=== PATIENT | female | born 1975 | race Caucasian/White ===

== ENCOUNTER 2016-08-09 00:50 | Emergency (ER) | payer BC, MEDICAID ==
[~2016-08-09] VITALS: Ht 170.2 cm; Wt 113.4 kg
[~2016-08-09 00:50] MED LIST: BENTYL10 MG PO; HRT; ZOFRAN ODT4 MG PO
[2016-08-09 01:13] VITALS: BP 154/105
--- NOTE | 2016-08-09 01:26 | NUR ---
PT TAKEN TO BED 07
--- NOTE | 2016-08-09 01:35 | NUR ---
PT IS 40Y/F C/O SORETHROAT, WTIH RUNNING NOSE, LEFT EYE PAIN, MUSCLE SPASM ON RT SHOULDER BLADE.
--- NOTE | 2016-08-09 01:59 | NUR ---
Patient being evaluated by DR. MOSES at bedside.
[2016-08-09] MEDS ORDERED: KETOROLAC 30 MG/ML VIAL IM ONE (02:05)
[2016-08-09] MEDS ORDERED: DEXAMETHASONE 10 MG/ML VIAL PO ONE (02:05)
[2016-08-09] MEDS ORDERED: ACETAMIN/CODEINE 120/12MG-5ML 5 ML UDC PO ONE (02:05)
[2016-08-09 03:05] VITALS: BP 132/81
--- NOTE | 2016-08-09 03:05 | NUR ---
Patient discharged with v/s stable. Written and verbal after care instructions given and explained. Patient alert, oriented and verbalized understanding of instructions. Ambulatory with steady gait. All questions addressed prior to discharge. ID band removed. Patient advised to follow up with PMD. Rx of TOBRAMYCIN 0.3% OPTHALMIC SOLUTION, GUAIATUSSIN 1C 100MG-10MG/5ML SOLUTION, AMOXICILLIN 500MG PO, NAPROSYN 500MG PO given. Patient educated on indication of medication including possible reaction and side effects. Opportunity to ask questions provided and answered.
== END 2016-08-09 03:05 | disposition home or self-care (01) ==
LOC: MED 00:50
DX: J02.9 Acute pharyngitis, unspecified (principal); H10.32 Unspecified acute conjunctivitis, left eye; E89.0 Postprocedural hypothyroidism
CPT/HCPCS: 96372; 99283; J1100; J1885

== ENCOUNTER 2016-10-07 07:11 | Emergency (ER) | payer MEDICAID, OTHER ==
[~2016-10-07] VITALS: Ht 170.2 cm; Wt 114.5 kg
[2016-10-07 07:30] VITALS: BP 143/95
--- NOTE | 2016-10-07 07:40 | NUR ---
PATIENT PRESENTS TO ED WITH LEFT SHOULDER PAIN STARTED DAY BEFORE YESTERDAY ,NO TRAUMA OR INJURY.PRIOR TO FRIDAY BLOATING AND DIZZINESS FRIDAY GOT WORST UNTIL NOW.1 WEEK NAUSEA,DIZZINESS,BLOATING,EPIGASTRIC PAIN; DENIES DIARRHEA; SKIN IS PINK/WARM/DRY; AAOX4 WITH EVEN AND STEADY GAIT; LUNGS CLEAR BL; HR EVEN AND REGULAR; PT DENIES ANY FEVER, CP, SOB, OR COUGH AT THIS TIME; PATIENT STATES PAIN OF 8/10 AT THIS TIME; VSS; PATIENT POSITIONED FOR COMFORT; HOB ELEVATED; BEDRAILS UP X2; BED DOWN. ER MD MADE AWARE OF PT STATUS.
--- NOTE | 2016-10-07 07:45 | NUR ---
EKG BEING DONE BY ENRIQUE THAKKAR WITH AT BEDSIDE
[2016-10-07] MEDS ORDERED: ONDANSETRON 4 MG/2 ML VIAL IVP ONE (08:00)
[2016-10-07] MEDS ORDERED: NACL 0.9% 1,000 ML IV ONE (08:00)
[2016-10-07] MEDS ORDERED: IBUPROFEN 600 MG TAB PO ONE (08:00)
--- NOTE | 2016-10-07 09:02 | NUR ---
AAO PT AMBULATES TO THE RESTROOM WITH
[2016-10-07] MEDS ORDERED: CYCLOBENZAPRINE 10 MG TAB PO ONE (09:40)
[2016-10-07] MEDS ORDERED: SUMAtriptan 6 MG/0.5 ML VIAL SUBQ ONE (09:45)
[2016-10-07] MEDS ORDERED: diphenhydrAMINE 50 MG/ML VIAL IVP ONE (09:45)
[2016-10-07] MEDS ORDERED: PROCHLORPERAZINE 10 MG/2 ML VIAL IVP ONE (09:45)
[2016-10-07] MEDS ORDERED: MECLIZINE 25 MG TAB PO ONE (11:05)
[2016-10-07 11:25] VITALS: BP 151/96
--- NOTE | 2016-10-07 11:25 | NUR ---
Patient discharged with v/s stable. Written and verbal after care instructions given and explained. Patient alert, oriented and verbalized understanding of instructions. Ambulatory with steady gait. All questions addressed prior to discharge. ID band removed. Patient advised to follow up with PMD. Rx of FLEXERIL given. Patient educated on indication of medication including possible reaction and side effects. Opportunity to ask questions provided and answered.
== END 2016-10-07 11:25 | disposition home or self-care (01) ==
LOC: MED 07:11
DX: S46.912A Strain of unspecified muscle, fascia and tendon at shoulder and upper arm level, left arm, initial encounter (principal); R59.0 Localized enlarged lymph nodes; I51.7 Cardiomegaly; R42 Dizziness and giddiness; X58.XXXA Exposure to other specified factors, initial encounter; Y93.89 Activity, other specified; Y92.89 Other specified places as the place of occurrence of the external cause; Y99.8 Other external cause status
CPT/HCPCS: 36415; 70450; 73030; 80053; 84439; 84443; 84484; 85025; 87804; 93005; 96361; 96374; 96375; 99285; J0780; J1200; J2405; J3030; J7030; J8597; Q0092

== ENCOUNTER 2017-04-08 14:29 | Inpatient (IN) | payer OTHER ==
[~2017-04-08] VITALS: Ht 170.2 cm; Wt 113.4 kg
--- NOTE | 2017-04-08 14:37 | NUR ---
Patient taken to bed 07 via gurney per family member.
[2017-04-08 14:38] VITALS: BP 159/95
--- NOTE | 2017-04-08 14:40 | NUR ---
41F BIB FAMILY C/O BL LOWER ABDOMINAL PAIN AND STATES HAVING "CLOTTS OF BLOOD WHEN I WIPE" X YESTERDAY. HX: HTN RX: LOSARTAN AND " ONE MORE I CAN'T REMEMBER"; DENIES N/V/D; SKIN IS PINK/WARM/DRY; AAOX4 WITH EVEN AND STEADY GAIT; LUNGS CLEAR BL; HR EVEN AND REGULAR; PT DENIES ANY FEVER, CP, SOB, OR COUGH AT THIS TIME; PATIENT STATES PAIN OF 10/10 AT THIS TIME; VSS; PATIENT POSITIONED FOR COMFORT; HOB ELEVATED; BEDRAILS UP X2; BED DOWN. ER MD MADE AWARE OF PT STATUS.
--- NOTE | 2017-04-08 14:48 | NUR ---
DR SWEENEY EVALUATING AAO PT WITH AT BEDSIDE
[2017-04-08] MEDS ORDERED: KETOROLAC 30 MG/ML VIAL IVP ONE (14:55)
[2017-04-08] MEDS ORDERED: ONDANSETRON 4 MG/2 ML VIAL IVP ONE (14:55)
--- NOTE | 2017-04-08 15:18 | NUR ---
US TECH JEANNE AT BEDSIDE
[2017-04-08 15:23] LABS: APPEARANCE,URINE CLEAR (CLEAR); BILIRUBIN,URINE NEGATIVE (NEGATIVE); BLOOD, URINE 1+ (NEGATIVE); COLOR,URINE YELLOW (YELLOW); LEUKOCYTE ESTERASE ,URINE NEGATIVE (NEGATIVE); NITRITE, URINE NEGATIVE (NEGATIVE); UGLUCOSE NEGATIVE (NEGATIVE)
[2017-04-08 15:43] LABS: ANION GAP 13.3 (8-16); CARBON DIOXIDE 27.5 mmol/L (21-32); CREATININE 0.9 mg/dL (0.6-1.3); POTASSIUM 3.8 mmol/L (3.5-5.1)
[2017-04-08 15:45] LABS: RBC,URINE 0-5 (RARE) /HPF (0-5); WBC,URINE 0-5 (RARE) /HPF (0-5)
[2017-04-08 15:46] LABS: YEAST,URINE Rare /HPF (None Seen)
[2017-04-08 15:48] LABS: HEMATOCRIT 39.2 % (36-48); HEMOGLOBIN 12.8 g/dL (12.0-16.0); MEAN CORPUSCULAR HEMOGLOBIN 29 pg (27-31); MEAN CORPUSCULAR HGB CONC 33 g/dL (33-37); MEAN CORPUSCULAR VOLUME 90 fL (80-94); RED BLOOD CELL COUNT(AUTO) 4.38 MIL/uL (4.20-5.40); RED CELL DISTRIBUTION WIDTH 13.2 % (11.6-13.7); TOTAL BILIRUBIN 0.4 mg/dL (0.0-1.0); WHITE BLOOD COUNT (AUTO) 8.3 K/uL (4.8-10.8)
[2017-04-08 15:49] LABS: BASOPHILS % (AUTO) 0.4 % (0.0-2.0); EOSINOPHILS # (AUTO) 0.1 K/uL (0-0.4); EOSINOPHILS % (AUTO) 1.8 % (0.0-4.0); LYMPHOCYTES # (AUTO) 2.2 K/uL (2.5-16.5); LYMPHOCYTES % (AUTO) 26.8 % (20.5-51.1); MONOCYTES # (AUTO) 0.5 K/uL (0.8-1.0); MONOCYTES % (AUTO) 5.8 % (1.7-9.3); NEUTROPHILS # (AUTO) 5.4 K/uL (1.8-7.7); NEUTROPHILS % (AUTO) 65.2 % (42.2-75.2); PLATELET COUNT (AUTO) 305 K/uL (140-450)
[2017-04-08] MEDS ORDERED: NACL 0.9% 1,000 ML IV ONE (15:55)
--- NOTE | 2017-04-08 16:09 | NUR ---
Patient taken to CT via wheelchair per tech.
--- NOTE | 2017-04-08 16:10 | NUR ---
PT TAKEN OFF THE UNIT VIA WHEEL CHAIR BY BANK WORKER [place] FOR CT OF THE ABDOMEN WITH CONTRAST
--- NOTE | 2017-04-08 16:24 | NUR ---
Patient back from CT.
--- NOTE | 2017-04-08 17:23 | NUR ---
AAO PT REQUESTING BED HUMPHREY PROVIDED
[2017-04-08] MEDS ORDERED: FURO20TA8 PO (17:49)
[2017-04-08] MEDS ORDERED: METO50TE2 PO (17:51)
[2017-04-08] MEDS ORDERED: HYDR-3423 PO (17:52)
[2017-04-08] MEDS ORDERED: fentaNYL 0.05 MG/ML VIAL IVP ONE (18:05)
--- NOTE | 2017-04-08 18:05 | NUR ---
Patient will be admitted to care of DR MARIN. Admited to TELE. Will go to room 120A. Belongings list completed. Report to SHELBY CURTIS.
--- NOTE | 2017-04-08 18:20 | NUR ---
WASTED 1ML/50MCG FENTANYL
[2017-04-08] MEDS ORDERED: LORazepam 2 MG/ML VIAL IVP PRN (18:25)
[2017-04-08] MEDS ORDERED: HYDROcodone/APAP 5/325 MG 1 TAB TAB PO PRN (18:25)
[2017-04-08] MEDS ORDERED: ACETAMINOPHEN 325 MG TAB PO PRN (18:25)
[2017-04-08] MEDS ORDERED: MORPHINE SULFATE 2 MG/ML SYR IVP PRN (18:25)
[2017-04-08] MEDS ORDERED: ONDANSETRON 4 MG/2 ML VIAL IVP PRN (18:25)
--- NOTE | 2017-04-08 18:39 | NUR ---
Admitted from ER, with chief complaint of ABDOMINAL PAIN , 41 y/o ,Female, Appropriate, AAOX4, NO S/S OF ACUTE DISTRESS. PT STATES PAIN IS REDUCED FROM PAIN MED, IV SITE PATENT AND INTACT. PLAN OF CARE DISCUSSED. PT VERBALIZED UNDERSTANDING. PT oriented to call light, bed, phone,television, bathroom, smoking policy, visiting hours, procedures, ID bracelet on. Belongings list checked.
[2017-04-08 18:41] VITALS: BP 135/82
--- NOTE | 2017-04-08 19:06 | NUR ---
ENDORSED PLAN OF CARE TO NIGHT RN. PT REMAINS STABLE.
--- NOTE | 2017-04-08 19:07 | NUR ---
RECEIVED REPORT FROM DAY NURSE, PT IN STABLE CONDITION NO S/S OF DISTRESS NOTED. PT IS ON RA, IV TO R AC 20 G, PATENT AND INTACT. SKIN IS INTACT. RESPIRATIONS ARE EVEN AND UNLABORED, BOWEL SOUNDS PRESENT. INITIAL PLAN COMPLETED, PLAN OF CARE DISCUSSED WITH PT, PT VERBALIZED UNDERSTANDING. ALL SAFETY PRECAUTIONS MET, CALL LIGHT WITHIN REACH, WILL CONTINUE TO MONITOR.
--- NOTE | 2017-04-08 19:20 | NUR ---
PAGED DR. MARIN FOR CLARIFICATION ON RATE OF IV FLUIDS
--- NOTE | 2017-04-08 19:21 | NUR ---
SR. MARIN PAGED BACK WILL CARRY OUT ORDERS
[2017-04-08] MEDS: NACL 0.9% 1,000 ML IV SCH (20:00)
[2017-04-08] MEDS ORDERED: METOPROLOL SUCCINATE 50 MG TABER PO SCH (21:00)
[2017-04-08] MEDS ORDERED: PIPERACILLIN/TAZOBACTAM 3.375 GM in DEXTROSE 5% 50 ML IV SCH (21:00)
[2017-04-08] MEDS ORDERED: PIPERACILLIN/TAZOBACTAM 3.375 GM VIAL IV ONE (21:12)
[2017-04-08] MEDS: METOPROLOL 25 MG TAB PO SCH (21:28)
[2017-04-08] MEDS: PIPER/TAZO 3.375GM/D5W PREMIX 50 ML IV SCH (21:28)
--- NOTE | 2017-04-08 21:28 | NUR ---
MEDICATION GIVEN WITH EDUCATION. PT VERBALIZED UNDERSTANDING. CALL LIGHT WITHIN REACH. SAFETY MEASURES ENSURED. WILL CONTINUE TO MONITOR.
[2017-04-09] VITALS: BP 118/69
[2017-04-09] MEDS ORDERED: PIPERACILLIN/TAZOBACTAM 3.375 GM VIAL IV ONE (04:35)
[2017-04-09] MEDS: PIPER/TAZO 3.375GM/D5W PREMIX 50 ML IV SCH ×2 (04:50→12:35)
[2017-04-09 05:55] LABS: BASOPHILS # (AUTO) 0.2 K/uL (0.00-0.22); BASOPHILS % (AUTO) 2.1 % (0.0-2.0); EOSINOPHILS # (AUTO) 0.2 K/uL (0-0.4); EOSINOPHILS % (AUTO) 3.1 % (0.0-4.0); HEMATOCRIT 34.7 % (36-48); HEMOGLOBIN 11.6 g/dL (12.0-16.0); LYMPHOCYTES # (AUTO) 2.7 K/uL (2.5-16.5); LYMPHOCYTES % (AUTO) 37.3 % (20.5-51.1); MEAN CORPUSCULAR HEMOGLOBIN 30 pg (27-31); MEAN CORPUSCULAR HGB CONC 34 g/dL (33-37); MEAN CORPUSCULAR VOLUME 90 fL (80-94); MONOCYTES # (AUTO) 0.5 K/uL (0.8-1.0); MONOCYTES % (AUTO) 6.2 % (1.7-9.3); NEUTROPHILS # (AUTO) 3.7 K/uL (1.8-7.7); NEUTROPHILS % (AUTO) 51.3 % (42.2-75.2); PLATELET COUNT (AUTO) 263 K/uL (140-450); RED BLOOD CELL COUNT(AUTO) 3.87 MIL/uL (4.20-5.40); RED CELL DISTRIBUTION WIDTH 12.4 % (11.6-13.7); WHITE BLOOD COUNT (AUTO) 7.3 K/uL (4.8-10.8)
[2017-04-09 06:12] LABS: ANION GAP 9.5 (8-16); CARBON DIOXIDE 29.4 mmol/L (21-32); CREATININE 0.9 mg/dL (0.6-1.3); POTASSIUM 3.9 mmol/L (3.5-5.1)
[2017-04-09] MEDS: NACL 0.9% 1,000 ML IV SCH (06:54)
--- NOTE | 2017-04-09 07:17 | NUR ---
GAVE REPORT TO AM NURSE AT THE BEDSIDE FOR CONTINUITY OF CARE. PT IN STABLE CONDITION. NO S/S OF DISTRESS NOTED
--- NOTE | 2017-04-09 07:23 | NUR ---
RECEIVED REPORT FROM NIGHT SHELBY STEELE. PT RESTING IN BED. AAOX4, NO S/S OF ACUTE DISTRESS. PT DENIES PAIN. IV SITE PATENT AND INTACT. PLAN OF CARE DISCUSSED WITH PT, PT VERBALIZED UNDERSTANDING. CALL LIGHT WITHIN REACH. SAFETY MEASURES ENSURED. WILL CONTINUE TO MONITOR.
[2017-04-09] MEDS ORDERED: PROPOFOL 200 MG/20 ML VIAL IV ONE (07:49)
[2017-04-09] MEDS ORDERED: LIDOCAINE 2% 100 MG/5 ML SYR IVP ONE (07:49)
[2017-04-09] MEDS ORDERED: SEVOFLURANE 250 ML BTL INH ONE (07:49)
[2017-04-09 08:02] VITALS: BP 120/78
--- NOTE | 2017-04-09 08:20 | NUR ---
CM NOTE INITIAL REVIEW FAXED TO [facility] [phone] # [phone]
--- NOTE | 2017-04-09 08:24 | NUR ---
NOTIFIED DR Mirza LEWIS REGARDING CONSULT NEW ORDER KEEP PT NPO WILL SEE PT TODAY
[2017-04-09] MEDS: METOPROLOL 25 MG TAB PO SCH (08:44)
--- NOTE | 2017-04-09 08:51 | NUR ---
DUE MEDICATIONS GIVEN WITH PT TEACHING, PT VERBALIZED UNDERSTANDING OF MEDS, CALL LIGHT WITHIN REACH, WILL CONT TO MONITOR.
[2017-04-09] MEDS ORDERED: HYDROCHLOROTHIAZIDE 25 MG TAB PO SCH (09:00)
[2017-04-09] MEDS ORDERED: FUROSEMIDE 20 MG TAB PO SCH (09:00)
[2017-04-09] MEDS ORDERED: NON-FORMULARY ITEM (Losartan/Hydrochlorothiazide (Losartan-Hctz 50-12.5 mg Tab) 1 TAB) PO SCH (09:00)
[2017-04-09] MEDS ORDERED: LOSARTAN 50 MG TAB PO SCH (09:00)
[2017-04-09] MEDS ORDERED: ENOXAPARIN 40 MG/0.4 ML SYR SUBQ SCH (09:00)
--- NOTE | 2017-04-09 09:23 | NUR ---
PATIENT HAS BEEN SCREENED AND CATEGORIZED MODERATE NUTRITION RISK. PATIENT WILL BE SEEN WITHIN 3-5 DAYS OF ADMISSION. 04/11/17-04/13/[address]
--- NOTE | 2017-04-09 09:35 | NUR ---
PT OFF THE UNIT TO OPERATING ROOM AT 0935.
[2017-04-09] MEDS ORDERED: ONDANSETRON 4 MG/2 ML VIAL IVP PRN ×2 (10:20→10:35)
[2017-04-09] MEDS ORDERED: ACETAMINOPHEN/CODEINE 300/30MG 1 TAB PO PRN (10:20)
[2017-04-09] MEDS ORDERED: MORPHINE SULFATE 4 MG/ML SYR IM/IVP PRN (10:20)
[2017-04-09] MEDS ORDERED: IBUPROFEN 800 MG TAB PO PRN (10:20)
[2017-04-09] MEDS ORDERED: MIDAZOLAM 2 MG/2 ML VIAL ONE (10:24)
[2017-04-09] MEDS ORDERED: HYDROmorphone 1 MG/ML AMP IVP PRN (10:35)
[2017-04-09 11:30] VITALS: BP 109/76
--- NOTE | 2017-04-09 11:35 | NUR ---
RETURN FROM OR, NO S/S OF ACUTE DISTRESS, PT DENIES PAIN, PT VOIDED, RECEIVED REPORT FROM OR NURSE, CALL LIGHT WITHIN REACH, WILL CONT TO MONITOR.
--- NOTE | 2017-04-09 11:40 | NUR ---
CM NOTE RECEIVED A CALL FROM MARBLE CLEANER CARLOS WHO SAID THAT THIS PATIENT HAS IEHP WITH [facility] INSTEAD OF IEHP WITH [facility] INITIALLY STATED ON PATIENT'S FACESHEET. INITIAL REVIEW FAXED TO [facility] [phone] ISAURA MARTINEZ PH# [phone]
[2017-04-09 15:04] VITALS: BP 109/76
--- NOTE | 2017-04-09 15:42 | NUR ---
PT CLEARED FOR TRANSFER HOME. PT DENIES PAIN AT THIS TIME. IV TAKEN OUT TIP INTACT. DISCHARGE INSTRUCTIONS PROVIDED. PT VERBALIZED UNDERSTANDING. NO VAGINAL BLEEDING AT THIS TIME. PT'S AT BEDSIDE. PT REMAINS STABLE.
== END 2017-04-09 15:55 | disposition home or self-care (01) | DRG 517 ==
LOC: MED 14:29 → MTU 18:31
PROVIDERS: ADMIT Hospitalist; ATTEND Hospitalist
PROC: 0UDB7ZZ Extraction of Endometrium, Via Natural or Artificial Opening (ICD-10-PCS; principal; 2017-04-09 09:15)
DX: N88.8 Other specified noninflammatory disorders of cervix uteri (principal); I10 Essential (primary) hypertension; N93.9 Abnormal uterine and vaginal bleeding, unspecified; R00.1 Bradycardia, unspecified; E66.9 Obesity, unspecified; F32.9 Major depressive disorder, single episode, unspecified; D64.9 Anemia, unspecified; F41.9 Anxiety disorder, unspecified; T44.7X5A Adverse effect of beta-adrenoreceptor antagonists, initial encounter; Z68.39 Body mass index [BMI] 39.0-39.9, adult; Z87.891 Personal history of nicotine dependence; Z90.710 Acquired absence of both cervix and uterus; Y92.89 Other specified places as the place of occurrence of the external cause
CPT/HCPCS: 36415; 76830; 80048; 80053; 81001; 81025; 83735; 85025; 87081; 93005; 96361; 96374; 96375; 99285; J1650; J1885; J2001; J2250; J2405; J2543; J2704; J3010; J7030; J7060; J7120; Q0092; Q9967

== ENCOUNTER 2017-09-08 20:50 | Emergency (ER) | payer OTHER ==
[~2017-09-08] VITALS: Ht 167.6 cm; Wt 114.4 kg
[~2017-09-08 20:50] MED LIST changes: -BENTYL10 MG PO; +FURO20TA8 PO; -HRT; +HYDR-3293 PO; +METO50TE2 PO; -ZOFRAN ODT4 MG PO
[2017-09-08 20:57] VITALS: BP 119/72
--- NOTE | 2017-09-08 21:10 | NUR ---
EKG DONE AND URINE COLLECTED.
[2017-09-08 23:24] VITALS: BP 119/72
--- NOTE | 2017-09-08 23:24 | NUR ---
PATIENT LEFT WITHOUT BEING SEEN BY DR. LEMOS. NO FURTHER CARE PROVIDED FOR PATIENT.
== END 2017-09-08 23:24 | disposition left against medical advice (07) ==
LOC: MED 20:50
DX: R94.31 Abnormal electrocardiogram [ECG] [EKG] (principal); Z53.21 Procedure and treatment not carried out due to patient leaving prior to being seen by health care provider
CPT/HCPCS: 93005; 99281

== ENCOUNTER 2017-10-10 20:48 | Emergency (ER) | payer OTHER ==
[~2017-10-10] VITALS: Ht 168.9 cm; Wt 116.6 kg
[2017-10-10 21:05] VITALS: BP 116/69
--- NOTE | 2017-10-10 21:05 | NUR ---
PATIENT TRIAGED AND SENT TO ER LOBBY.
--- NOTE | 2017-10-10 22:15 | NUR ---
PATIENT TO ER BED 2.
[2017-10-10] MEDS ORDERED: diphenhydrAMINE 50 MG CAP PO ONE (22:55)
[2017-10-10 23:07] VITALS: BP 116/69
--- NOTE | 2017-10-10 23:07 | NUR ---
Patient discharged with v/s stable without sob or dyspnea. Written and verbal after care instructions given and explained. Patient alert, oriented and verbalized understanding of instructions. Ambulatory with steady gait. All questions addressed prior to discharge. ID band removed. Patient advised to follow up with PMD. Rx of Benadryl given. Patient educated on indication of medication including possible reaction and side effects. Opportunity to ask questions provided and answered.
== END 2017-10-10 23:07 | disposition home or self-care (01) ==
LOC: MED 20:48
DX: R21 Rash and other nonspecific skin eruption (principal); I10 Essential (primary) hypertension; Z90.710 Acquired absence of both cervix and uterus; Z79.899 Other long term (current) drug therapy; Z88.5 Allergy status to narcotic agent
CPT/HCPCS: 81002; 81025; 99282; Q0163

== ENCOUNTER 2017-11-08 19:24 | Emergency (ER) | payer OTHER ==
[~2017-11-08] VITALS: Ht 170.2 cm; Wt 117.9 kg
[2017-11-08 19:26] VITALS: BP 150/97
--- NOTE | 2017-11-08 19:30 | NUR ---
PATIENT PRESENTS TO ED WITH RIGHT FLANK PAIN X15 HRS. PT STATES PAIN IS CONSTANT AND CAN'T GET THE PAIN TO GO AWAY. SHE IS CONCERNED AND WISHES PHYSICIAN ASSESSMENT AT THIS TIME. URINATION, OCCASIONAL BURNING BUT NONE AT THIS TIME. DENIES N/V/D; SKIN IS PINK/WARM/DRY; AAOX4 WITH EVEN AND STEADY GAIT; LUNGS CLEAR BL; HR EVEN AND REGULAR; PT DENIES ANY FEVER, CP, SOB, OR COUGH AT THIS TIME; PATIENT STATES PAIN OF 8/10 AT THIS TIME; VSS; PATIENT POSITIONED FOR COMFORT; HOB ELEVATED; BEDRAILS UP X2; BED DOWN. ER MD MADE AWARE OF PT STATUS. CONTINUE TO MONITOR.
[2017-11-08] MEDS ORDERED: KETOROLAC 30 MG/ML VIAL IVP ONE (20:10)
[2017-11-08 20:40] LABS: APPEARANCE,URINE CLEAR (CLEAR); BILIRUBIN,URINE NEGATIVE (NEGATIVE); BLOOD, URINE TRACE-I (NEGATIVE); COLOR,URINE YELLOW (YELLOW); LEUKOCYTE ESTERASE ,URINE NEGATIVE (NEGATIVE); NITRITE, URINE NEGATIVE (NEGATIVE); PH,URINE 5.5 (5.0-9.0); UGLUCOSE NEGATIVE (NEGATIVE)
[2017-11-08 20:41] LABS: BASOPHILS % (AUTO) 0.4 % (0.0-2.0); EOSINOPHILS # (AUTO) 0.2 K/uL (0-0.4); EOSINOPHILS % (AUTO) 2.4 % (0.0-4.0); HEMATOCRIT 36.4 % (36-48); LYMPHOCYTES # (AUTO) 2.6 K/uL (2.5-16.5); MEAN CORPUSCULAR HEMOGLOBIN 29 pg (27-31); MEAN CORPUSCULAR HGB CONC 33 g/dL (33-37); MEAN CORPUSCULAR VOLUME 88.2 fL (80-94); MONOCYTES # (AUTO) 0.6 K/uL (0.8-1.0); MONOCYTES % (AUTO) 6.6 % (1.7-9.3); NEUTROPHILS # (AUTO) 5.5 K/uL (1.8-7.7); NEUTROPHILS % (AUTO) 61.6 % (42.2-75.2); PLATELET COUNT (AUTO) 282 K/uL (140-450); RED BLOOD CELL COUNT(AUTO) 4.13 MIL/uL (4.20-5.40); RED CELL DISTRIBUTION WIDTH 13.6 % (11.6-13.7)
[2017-11-08 20:48] LABS: ANION GAP 10.4 (8-16); CARBON DIOXIDE 30.3 mmol/L (21-32); CREATININE 0.9 mg/dL (0.6-1.3); POTASSIUM 3.7 mmol/L (3.5-5.1)
[2017-11-08 20:54] LABS: ALBUMIN 3.4 g/dL (3.4-5.0); TOTAL BILIRUBIN 0.2 mg/dL (0.0-1.0)
[2017-11-08 20:57] LABS: RBC,URINE 0-5 (RARE) /HPF (0-5); WBC,URINE 0-5 (RARE) /HPF (0-5)
[2017-11-08 21:57] VITALS: BP 150/97
--- NOTE | 2017-11-08 21:57 | NUR ---
Patient discharged with v/s stable. Written and verbal after care instructions given and explained. Patient alert, oriented and verbalized understanding of instructions. Ambulatory with steady gait. All questions addressed prior to discharge. ID band removed. Patient advised to follow up with PMD. Rx of Diclofenac given. Patient educated on indication of medication including possible reaction and side effects. Opportunity to ask questions provided and answered.
== END 2017-11-08 21:57 | disposition home or self-care (01) ==
LOC: MED 19:24
DX: K80.50 Calculus of bile duct without cholangitis or cholecystitis without obstruction (principal); K76.0 Fatty (change of) liver, not elsewhere classified; I10 Essential (primary) hypertension; E07.9 Disorder of thyroid, unspecified; Z79.899 Other long term (current) drug therapy; Z88.5 Allergy status to narcotic agent
CPT/HCPCS: 36415; 76705; 80053; 81001; 81025; 83690; 85025; 96372; 99285; J1885; Q0092

== ENCOUNTER 2018-12-28 14:25 | Emergency (ER) | payer MEDICAID, OTHER ==
[~2018-12-28] VITALS: Ht 167.6 cm; Wt 113.4 kg
--- NOTE | 2018-12-28 14:30 | NUR ---
Pt taken to bed 6.
[2018-12-28 14:36] VITALS: BP 154/98
--- NOTE | 2018-12-28 14:40 | NUR ---
C/O LOWER ABD PAIN THAT RADIATES TO BL LEGS X1 WEEK, W/ CONSTIPATION AND FREQUENT URINATION. PT ALSO STATES SHE HAS SOME VAGINAL BLEEDING. RX- LOSARTAN, HYDROCHLOROTHIAZIDE, METROPOLOL. PMH- HYSTERECTOMY, HTN.ABD SOFT. PATIENT STATES PAIN OF 8/10 AT THIS TIME;PATIENT POSITIONED FOR COMFORT; HOB ELEVATED; BEDRAILS UP X2; BED DOWN. ER MD MADE AWARE OF PT STATUS.
[2018-12-28] MEDS ORDERED: ONDANSETRON 4 MG/2 ML VIAL IVP ONE (15:10)
[2018-12-28] MEDS ORDERED: KETOROLAC 30 MG/ML VIAL IVP ONE (15:10)
--- NOTE | 2018-12-28 15:10 | NUR ---
PT TO CT SCAN.
[2018-12-28 15:14] LABS: APPEARANCE,URINE CLEAR (CLEAR); BILIRUBIN,URINE NEGATIVE (NEGATIVE); BLOOD, URINE NEGATIVE (NEGATIVE); COLOR,URINE YELLOW (YELLOW); LEUKOCYTE ESTERASE ,URINE NEGATIVE (NEGATIVE); NITRITE, URINE NEGATIVE (NEGATIVE); UGLUCOSE NEGATIVE (NEGATIVE)
[2018-12-28 15:31] LABS: BASOPHILS % (AUTO) 0.3 % (0.0-2.0); EOSINOPHILS # (AUTO) 0.2 K/uL (0-0.4); EOSINOPHILS % (AUTO) 1.7 % (0.0-4.0); HEMATOCRIT 37.9 % (36-48); HEMOGLOBIN 12.5 g/dL (12.0-16.0); LYMPHOCYTES # (AUTO) 2.4 K/uL (2.5-16.5); LYMPHOCYTES % (AUTO) 25.6 % (20.5-51.1); MEAN CORPUSCULAR HEMOGLOBIN 29 pg (27-31); MEAN CORPUSCULAR HGB CONC 33 g/dL (33-37); MEAN CORPUSCULAR VOLUME 88.9 fL (80-94); MONOCYTES # (AUTO) 0.6 K/uL (0.8-1.0); MONOCYTES % (AUTO) 5.8 % (1.7-9.3); NEUTROPHILS # (AUTO) 6.4 K/uL (1.8-7.7); NEUTROPHILS % (AUTO) 66.6 % (42.2-75.2); PLATELET COUNT (AUTO) 275 K/uL (140-450); RED BLOOD CELL COUNT(AUTO) 4.27 MIL/uL (4.20-5.40); RED CELL DISTRIBUTION WIDTH 13.7 % (11.6-13.7); WHITE BLOOD COUNT (AUTO) 9.6 K/uL (4.8-10.8)
[2018-12-28 15:45] LABS: CARBON DIOXIDE 25.7 mmol/L (21-32); CREATININE 0.8 mg/dL (0.6-1.3); POTASSIUM 3.7 mmol/L (3.5-5.1)
[2018-12-28 15:51] LABS: ALBUMIN 3.4 g/dL (3.4-5.0); TOTAL BILIRUBIN 0.4 mg/dL (0.0-1.0)
[2018-12-28 16:34] VITALS: BP 106/68
--- NOTE | 2018-12-28 16:34 | NUR ---
Patient discharged with v/s stable. Written and verbal after care instructions given and explained. Patient alert, oriented and verbalized understanding of instructions. Ambulatory with steady gait. All questions addressed prior to discharge. ID band removed. Patient advised to follow up with PMD. Rx of zofran, motrin & norco given. Patient educated on indication of medication including possible reaction and side effects. Opportunity to ask questions provided and answered.
== END 2018-12-28 16:34 | disposition home or self-care (01) ==
LOC: MED 14:25
DX: R10.32 Left lower quadrant pain (principal); R11.0 Nausea; R19.7 Diarrhea, unspecified; I10 Essential (primary) hypertension; E07.9 Disorder of thyroid, unspecified; Z90.710 Acquired absence of both cervix and uterus; Z79.899 Other long term (current) drug therapy; Z88.5 Allergy status to narcotic agent
CPT/HCPCS: 36415; 74176; 80053; 81003; 81025; 83690; 85025; 96374; 96375; 99284; J1885; J2405

== ENCOUNTER 2019-02-05 17:55 | Emergency (ER) | payer MEDICAID ==
[~2019-02-05] VITALS: Ht 170.2 cm; Wt 117.0 kg
[2019-02-05 18:07] VITALS: BP 165/101
--- NOTE | 2019-02-05 18:13 | NUR ---
PT TO WAIT IN ER ALYX. AA0X4. HYPERTENSION, WILL CONTINUE TO MONITOR
--- NOTE | 2019-02-05 20:30 | NUR ---
PT AMBULATED TO BED 01 WITH STEADY GAIT.
--- NOTE | 2019-02-05 20:51 | NUR ---
43 Y/O FEMALE C/O HEADACHE, L FACIAL NUMBNESS, PALPITATIONS, AND L ARM PAIN. PATIENT STATES IT FEELS LIKE PINS AND NEEDLES. PAIN 9/10. 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 PATIENT HAS NOT BEEN TAKING BP MEDICATIONS. NONPITTING EDEMA NOTED ON ANKLES BILATERALLY. SIDERAILS +1. ERMD TO SEE PATIENT. PMH- HEART MURMUR, HYSTERECTOMY, HTN RX: LOSARTAN
[2019-02-05] MEDS ORDERED: diphenhydrAMINE 50 MG/ML VIAL IVP ONE (21:05)
[2019-02-05] MEDS ORDERED: METOCLOPRAMIDE 10 MG/2 ML INJ VIAL IVP ONE (21:05)
[2019-02-05] MEDS ORDERED: NACL 0.9% 1,000 ML IV ONE (21:05)
--- NOTE | 2019-02-05 21:50 | NUR ---
MEDICATIONS ADMINISTERED ORDERED. RISKS/BENEFITS REVIEWED. WILL CONTINUE TO MONITOR.
[2019-02-05 22:00] LABS: BASOPHILS % (AUTO) 0.4 % (0.0-2.0); EOSINOPHILS # (AUTO) 0.2 K/uL (0-0.4); EOSINOPHILS % (AUTO) 2.5 % (0.0-4.0); HEMATOCRIT 37.3 % (36-48); HEMOGLOBIN 12.2 g/dL (12.0-16.0); LYMPHOCYTES # (AUTO) 2.6 K/uL (2.5-16.5); MEAN CORPUSCULAR HEMOGLOBIN 29 pg (27-31); MEAN CORPUSCULAR HGB CONC 33 g/dL (33-37); MEAN CORPUSCULAR VOLUME 88.5 fL (80-94); MONOCYTES # (AUTO) 0.5 K/uL (0.8-1.0); MONOCYTES % (AUTO) 5.2 % (1.7-9.3); NEUTROPHILS % (AUTO) 63.9 % (42.2-75.2); PLATELET COUNT (AUTO) 297 K/uL (140-450); RED BLOOD CELL COUNT(AUTO) 4.22 MIL/uL (4.20-5.40); RED CELL DISTRIBUTION WIDTH 13.8 % (11.6-13.7); WHITE BLOOD COUNT (AUTO) 9.4 K/uL (4.8-10.8)
[2019-02-05 22:15] LABS: ANION GAP 12.8 (8-16); CARBON DIOXIDE 29.2 mmol/L (21-32); CREATININE 0.8 mg/dL (0.6-1.3)
[2019-02-05 22:20] LABS: ALBUMIN 3.5 g/dL (3.4-5.0); TOTAL BILIRUBIN 0.2 mg/dL (0.0-1.0)
[2019-02-05] MEDS ORDERED: KETOROLAC 15 MG/ML VIAL IVP ONE (23:10)
--- NOTE | 2019-02-06 00:35 | NUR ---
Patient discharged with v/s stable. Written and verbal after care instructions given and explained. Patient alert, oriented and verbalized understanding of instructions. Ambulatory with steady gait. All questions addressed prior to discharge. ID band removed. Patient advised to follow up with PMD. Rx of Ibuprofen, Losartan, Lasix, Valium, and Metoprolol given. Patient educated on indication of medication including possible reaction and side effects. Opportunity to ask questions provided and answered.
[2019-02-06 00:37] VITALS: BP 143/81
== END 2019-02-06 00:35 | disposition home or self-care (01) ==
LOC: MED 17:55
DX: R51 Headache (principal); R06.02 Shortness of breath; R06.4 Hyperventilation; R42 Dizziness and giddiness; I10 Essential (primary) hypertension; E07.9 Disorder of thyroid, unspecified; Z90.710 Acquired absence of both cervix and uterus; Z88.5 Allergy status to narcotic agent; Z79.899 Other long term (current) drug therapy
CPT/HCPCS: 36415; 70450; 71045; 80053; 84484; 85025; 93005; 96361; 96374; 96375; 99284; J1200; J2765; J7030; J1885

== ENCOUNTER 2021-05-05 17:26 | Emergency (ER) | payer MEDICAID, OTHER ==
[~2021-05-05] VITALS: Ht 167.6 cm; Wt 118.4 kg
[2021-05-05 17:30] VITALS: BP 153/105
[2021-05-05 18:42] LABS: BASOPHILS % (AUTO) 0.3 % (0.0-2.0); EOSINOPHILS # (AUTO) 0.1 K/uL (0-0.4); EOSINOPHILS % (AUTO) 1.2 % (0.0-4.0); HEMATOCRIT 37.1 % (36-48); HEMOGLOBIN 12.3 g/dL (12.0-16.0); LYMPHOCYTES # (AUTO) 2.4 K/uL (2.5-16.5); LYMPHOCYTES % (AUTO) 19.9 % (20.5-51.1); MEAN CORPUSCULAR HEMOGLOBIN 29 pg (27-31); MEAN CORPUSCULAR HGB CONC 33 g/dL (33-37); MEAN CORPUSCULAR VOLUME 87.7 fL (80-94); MONOCYTES # (AUTO) 0.8 K/uL (0.8-1.0); MONOCYTES % (AUTO) 6.7 % (1.7-9.3); NEUTROPHILS # (AUTO) 8.6 K/uL (1.8-7.7); NEUTROPHILS % (AUTO) 71.9 % (42.2-75.2); PLATELET COUNT (AUTO) 289 K/uL (140-450); RED BLOOD CELL COUNT(AUTO) 4.23 MIL/uL (4.20-5.40); RED CELL DISTRIBUTION WIDTH 13.7 % (11.6-13.7)
[2021-05-05 18:55] LABS: APPEARANCE,URINE HAZY (CLEAR); BILIRUBIN,URINE NEGATIVE (NEGATIVE); BLOOD, URINE NEGATIVE (NEGATIVE); COLOR,URINE YELLOW (YELLOW); LEUKOCYTE ESTERASE ,URINE NEGATIVE (NEGATIVE); NITRITE, URINE NEGATIVE (NEGATIVE); UGLUCOSE NEGATIVE (NEGATIVE)
[2021-05-05 18:57] LABS: ALBUMIN 3.1 g/dL (3.4-5.0); ANION GAP 11.4 (8-16); CARBON DIOXIDE 29.9 mmol/L (21-32); CREATININE 0.9 mg/dL (0.6-1.3); POTASSIUM 4.3 mmol/L (3.5-5.1); TOTAL BILIRUBIN 0.4 mg/dL (0.0-1.0)
[2021-05-05] MEDS ORDERED: IBUPROFEN 800 MG TAB PO ONE (20:40)
[2021-05-05] MEDS ORDERED: AMOXIL/CLAVULANATE 875/125 MG 1 TAB PO ONE (20:40)
[2021-05-05] MEDS ORDERED: AMOX-1000 PO (20:42)
[2021-05-05] MEDS ORDERED: IBUP-2213 PO (20:42)
[2021-05-05] MEDS ORDERED: DOCU-299 PO (20:44)
[2021-05-05 21:15] VITALS: BP 153/105
[2021-05-06] MEDS ORDERED: DOCU-299 PO (11:50)
[2021-05-06] MEDS ORDERED: IBUP-2213 PO (11:50)
[2021-05-06] MEDS ORDERED: AMOX-1000 PO (11:50)
== END 2021-05-05 21:15 | disposition home or self-care (01) ==
LOC: MED 17:26
DX: K57.32 Diverticulitis of large intestine without perforation or abscess without bleeding (principal); K59.00 Constipation, unspecified; I10 Essential (primary) hypertension; Z86.39 Personal history of other endocrine, nutritional and metabolic disease; Z79.899 Other long term (current) drug therapy; Z79.1 Long term (current) use of non-steroidal anti-inflammatories (NSAID); Z79.2 Long term (current) use of antibiotics; Z88.5 Allergy status to narcotic agent; Z91.018 Allergy to other foods
CPT/HCPCS: 36415; 74177; 80053; 81003; 81025; 83690; 85025; 99285; Q9967

== ENCOUNTER 2021-09-26 21:31 | Emergency (ER) | payer OTHER ==
[~2021-09-26] VITALS: Ht 170.2 cm; Wt 113.4 kg
[2021-09-26 21:31] VITALS: BP 164/13
[~2021-09-26 21:31] MED LIST changes: +AMOX-1000 PO; +DOCU-299 PO; +IBUP-2213 PO
--- NOTE | 2021-09-26 21:35 | NUR ---
TO LOBBY A/W BED AMBULATORY
--- NOTE | 2021-09-26 22:42 | NUR ---
PT BROUGHT TO BED 2 VIA WHEELCHAIR
[2021-09-26] MEDS ORDERED: ASPIRIN 325 MG TAB PO ONE (23:25)
[2021-09-26 23:41] LABS: BASOPHILS % (AUTO) 0.4 % (0.0-2.0); EOSINOPHILS # (AUTO) 0.2 K/uL (0-0.4); EOSINOPHILS % (AUTO) 2.2 % (0.0-4.0); HEMATOCRIT 37.7 % (36-48); HEMOGLOBIN 12.6 g/dL (12.0-16.0); LYMPHOCYTES # (AUTO) 2.9 K/uL (2.5-16.5); LYMPHOCYTES % (AUTO) 28.5 % (20.5-51.1); MEAN CORPUSCULAR HEMOGLOBIN 29 pg (27-31); MEAN CORPUSCULAR HGB CONC 33 g/dL (33-37); MEAN CORPUSCULAR VOLUME 87.3 fL (80-94); MONOCYTES # (AUTO) 0.6 K/uL (0.8-1.0); NEUTROPHILS # (AUTO) 6.5 K/uL (1.8-7.7); NEUTROPHILS % (AUTO) 62.9 % (42.2-75.2); PLATELET COUNT (AUTO) 283 K/uL (140-450); RED BLOOD CELL COUNT(AUTO) 4.33 MIL/uL (4.20-5.40); WHITE BLOOD COUNT (AUTO) 10.3 K/uL (4.8-10.8)
[2021-09-27 00:14] LABS: ALBUMIN 3.3 g/dL (3.4-5.0); ANION GAP 9.8 (8-16); ASPARTATE AMINOTRANSFERASE 17 U/L (15-37); CARBON DIOXIDE 30.1 mmol/L (21-32); CHLORIDE 99 mmol/L (98-107); CREATININE 0.8 mg/dL (0.6-1.3); GFR ARICAN-AMERICAN 100 mL/min (>90); GLUCOSE 101 mg/dL (74-106); POTASSIUM 3.9 mmol/L (3.5-5.1); SODIUM SERUM 135 mmol/L (136-145); TOTAL BILIRUBIN 0.3 mg/dL (0.0-1.0); UREA NITROGEN, BLOOD 14 mg/dL (7-18)
[2021-09-27] MEDS ORDERED: IBUP-2213 PO (02:03)
[2021-09-27 02:20] VITALS: BP 147/81
== END 2021-09-27 02:21 | disposition home or self-care (01) ==
LOC: MED 21:31
DX: I80.9 Phlebitis and thrombophlebitis of unspecified site (principal); R07.89 Other chest pain; E66.9 Obesity, unspecified; I10 Essential (primary) hypertension; Z91.018 Allergy to other foods; Z88.5 Allergy status to narcotic agent; Z98.890 Other specified postprocedural states; Z79.899 Other long term (current) drug therapy; Z68.39 Body mass index [BMI] 39.0-39.9, adult
CPT/HCPCS: 36415; 71045; 80053; 84484; 85025; 85379; 93005; 93971; 99285; Q0092

== ENCOUNTER 2022-04-30 03:58 | Emergency (ER) | payer OTHER ==
[~2022-04-30] VITALS: Ht 170.2 cm; Wt 113.4 kg
[2022-04-30 04:00] VITALS: BP 195/106
--- NOTE | 2022-04-30 04:00 | NUR ---
PATIENT TAKEN TO BED 12 AND PLACED ON BEDSIDE MONITOR. SALMA COX AT BEDSIDE ASSESSING PATIENT.
[2022-04-30] MEDS ORDERED: NACL 0.9% 1,000 ML IV ONE (04:10)
[2022-04-30] MEDS ORDERED: ALUMINUM HYD/MAG/SIMETHICONE 30 ML UDC PO ONE (04:10)
[2022-04-30] MEDS ORDERED: FAMOTIDINE 20 MG/2 ML VIAL IVP ONE (04:10)
--- NOTE | 2022-04-30 04:14 | NUR ---
RAD AT BEDSIDE
[2022-04-30] MEDS ORDERED: METOCLOPRAMIDE 10 MG/2 ML INJ VIAL ONE (04:25)
[2022-04-30] MEDS ORDERED: METOCLOPRAMIDE 10 MG/2 ML INJ VIAL IVP ONE (04:25)
[2022-04-30 05:15] LABS: BASOPHILS # (AUTO) 0.1 K/uL (0.00-0.22); BASOPHILS % (AUTO) 0.6 % (0.0-2.0); EOSINOPHILS # (AUTO) 0.2 K/uL (0-0.4); EOSINOPHILS % (AUTO) 2.1 % (0.0-4.0); HEMATOCRIT 39.6 % (36-48); HEMOGLOBIN 13.2 g/dL (12.0-16.0); LYMPHOCYTES # (AUTO) 2.9 K/uL (2.5-16.5); LYMPHOCYTES % (AUTO) 27.5 % (20.5-51.1); MEAN CORPUSCULAR HEMOGLOBIN 30 pg (27-31); MEAN CORPUSCULAR HGB CONC 33 g/dL (33-37); MONOCYTES # (AUTO) 0.6 K/uL (0.8-1.0); NEUTROPHILS # (AUTO) 6.6 K/uL (1.8-7.7); NEUTROPHILS % (AUTO) 63.8 % (42.2-75.2); PLATELET COUNT (AUTO) 289 K/uL (140-450); RED BLOOD CELL COUNT(AUTO) 4.39 MIL/uL (4.20-5.40); RED CELL DISTRIBUTION WIDTH 13.8 % (11.6-13.7); WHITE BLOOD COUNT (AUTO) 10.4 K/uL (4.8-10.8)
[2022-04-30 05:46] LABS: ANION GAP 12.1 (8-16); CARBON DIOXIDE 31.7 mmol/L (21-32); POTASSIUM 3.8 mmol/L (3.5-5.1)
[2022-04-30 05:47] LABS: ALBUMIN 3.3 g/dL (3.4-5.0); CREATININE 0.8 mg/dL (0.6-1.3); TOTAL BILIRUBIN 0.4 mg/dL (0.0-1.0)
[2022-04-30] MEDS ORDERED: SUCR1TAB35 PO (05:53)
[2022-04-30] MEDS ORDERED: FAMO-90 PO (05:53)
[2022-04-30 06:25] VITALS: BP 132/90
--- NOTE | 2022-04-30 06:25 | NUR ---
Patient discharged with v/s stable. Written and verbal after care instructions given and explained. Patient alert, oriented and verbalized understanding of instructions. Ambulatory with steady gait. All questions addressed prior to discharge. ID band removed. Patient advised to follow up with PMD. Rx of PEPCID, CARAFATE given. Patient educated on indication of medication including possible reaction and side effects. Opportunity to ask questions provided and answered.
== END 2022-04-30 06:25 | disposition home or self-care (01) ==
LOC: MED 03:58
DX: R10.13 Epigastric pain (principal); R07.9 Chest pain, unspecified; I10 Essential (primary) hypertension; I25.10 Atherosclerotic heart disease of native coronary artery without angina pectoris; E03.9 Hypothyroidism, unspecified; Z79.899 Other long term (current) drug therapy; Z88.5 Allergy status to narcotic agent; Z91.02 Food additives allergy status
CPT/HCPCS: 36415; 71045; 80053; 81002; 81025; 83880; 84484; 85025; 93005; 96361; 96374; 96375; 99285; J2765; J3490; J7030; Q0092